=== PATIENT | male | born 1975 | race Caucasian/White ===

== ENCOUNTER 2017-08-21 08:36 | Outpatient (CLI) | payer BC ==
--- NOTE | 2017-08-21 11:50 | MRI ---
LUMBAR SPINE MRI WITHOUT CONTRAST: CLINICAL HISTORY: Chronic back pain with right lower extremity radiculopathy. FINDINGS: The conus medullaris is normal in morphology and terminates at the L1 level. Multilevel marrow heter ogeneity is present, favoring a degenerative process. There is multilevel disk space narrowing with associated modic endplate degenerative signal alteration, including type I and II signal changes with in the imaged retroperitoneum. No acute pathology is seen. There is bilateral multilevel mild degen erative facet hypertrophy. L5-S1: There is disk osteophyte complex with a focal right paracentral component that mildly effaces the ventral thecal sac. There is mild narrowing of each neural foramen L4-L5: Broad-based disk osteophyte is present with mild narrowing of the central canal. There is mi ld to moderate bilateral neural foraminal stenosis. L3-L4: No high-grade central canal or neural foraminal stenosis. There is a broad-based disk bulge. L2-L3: Right asymmetric broad-based disk bulge is present with moderate central canal stenosis as we ll as crowding of each traversing L3 nerve root within the subarticular zones. Mild narrowing of eac h neural foramen is present. There is a prominent area of altered signal within the right subarticul ar zone, inferior to the L2-L3 disk space, favoring a disk sequestrum, measuring approximately 15 mm in diameter, with associated compression of the right-sided nerve roots and displacement of thecal sa c contents to the left of midline. L1-L2: There is a right asymmetric broad-based disk osteophyte complex with moderate narrowing of th e central canal. There is crowding of the bilateral traversing L2 nerve roots, slightly more pronoun ray on the right. Mild narrowing of each neural foramen is present. IMPRESSION: Multilevel degenerative changes at the lumbar spine. There is prominent sized extradural signal alte ration at the superior L3 level, favoring a disk sequestration, impinging right-sided nerve roots and displacing thecal sac contents to the left of midline. POS: DARYL
== END 2017-08-21 08:37 | disposition home or self-care (01) ==
LOC: SCSMRI 08:36
PROVIDERS: ATTEND Orthopaedic Surgery
DX: M54.5 Low back pain (principal); M47.896 Other spondylosis, lumbar region
CPT/HCPCS: 72148

== ENCOUNTER 2022-06-27 08:07 | Outpatient (CLI) | payer BC | END 2022-06-27 08:08 | disposition home or self-care (01) | LOC: TBSIIMAG 08:07 | PROVIDERS: ATTEND Orthopaedic Surgery | DX: M54.16 Radiculopathy, lumbar region (principal); M47.895 Other spondylosis, thoracolumbar region; M51.36 Other intervertebral disc degeneration, lumbar region; M48.061 Spinal stenosis, lumbar region without neurogenic claudication; M47.896 Other spondylosis, lumbar region; M47.897 Other spondylosis, lumbosacral region; M51.37 Other intervertebral disc degeneration, lumbosacral region; M48.07 Spinal stenosis, lumbosacral region | CPT/HCPCS: 72148 ==